=== PATIENT | male | born 2000 | race Caucasian/White ===

== ENCOUNTER 2018-11-13 10:06 | Emergency (ER) | payer SELFPAY ==
[~2018-11-13] VITALS: Ht 175.3 cm; Wt 77.1 kg
[2018-11-13] MEDS ORDERED: ZITHROMAX250 MG PO (10:58)
== END 2018-11-13 11:23 | disposition home or self-care (01) ==
LOC: ED 10:06
DX: J06.9 Acute upper respiratory infection, unspecified (principal); F17.200 Nicotine dependence, unspecified, uncomplicated
CPT/HCPCS: 71046; 99283-25

== ENCOUNTER 2020-01-18 16:34 | Emergency (ER) | payer SELFPAY ==
[~2020-01-18] VITALS: Ht 175.3 cm; Wt 74.4 kg
[~2020-01-18 16:34] MED LIST: ZITHROMAX250 MG PO
== END 2020-01-18 18:25 | disposition home or self-care (01) ==
LOC: ED 16:34
DX: K59.00 Constipation, unspecified (principal); F17.200 Nicotine dependence, unspecified, uncomplicated
CPT/HCPCS: 74176; 80053; 81001; 83690; 83735; 85025; 87491; 87591; 96374; 99284-25; J2405

== ENCOUNTER 2020-03-21 05:31 | Emergency (ER) | payer SELFPAY ==
[~2020-03-21] VITALS: Ht 175.3 cm; Wt 74.4 kg
--- NOTE | 2020-03-22 13:33 | EKG ---
[facility] [address] [place] [address] Signed Normal sinus rhythm Rightward axis Borderline ECG No previous ECGs available Confirmed by ALEXUS RUTHERFORD MD ([id number]) on 03/22/2020 1:33:07 PM Electronically Signed By: ALEXUS RUTHERFORD MD 03/22/20 1333 PATIENT NAME: FRANCO DENNY SHIVA Electrocardiogram DATE OF : [birth year] PHYSICIAN: ALEXUS RUTHERFORD MD REPORT #: [id number] REPORT IS CONFIDENTIAL AND NOT TO BE RELEASED WITHOUT AUTHORIZATION
== END 2020-03-21 06:13 | disposition home or self-care (01) ==
LOC: ED 05:31
DX: R07.9 Chest pain, unspecified (principal); F17.200 Nicotine dependence, unspecified, uncomplicated
CPT/HCPCS: 71045; 80053; 83735; 84484; 85025; 93005; 93010; 99285-25

== ENCOUNTER 2020-09-09 22:30 | Emergency (ER) | payer OTHER ==
[~2020-09-09] VITALS: Ht 175.3 cm; Wt 86.2 kg
== END 2020-09-10 00:40 | disposition home or self-care (01) ==
LOC: ED 22:30
DX: R10.31 Right lower quadrant pain (principal); Z87.891 Personal history of nicotine dependence
CPT/HCPCS: 74177; 80053; 81001; 83690; 85025; 96375; 99284-25; J1170; J2405; Q9967

== ENCOUNTER 2021-07-08 20:42 | Emergency (ER) | payer OTHER ==
[~2021-07-08] VITALS: Ht 175.3 cm; Wt 81.7 kg
--- OUTSIDE RECORDS SUMMARY | 2021-07-08 20:50 | XMS ---
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 Elana has no Care Guidelines for this patient. Le[facility] VISIT COUNT (12 MO.) [facility] TOTAL 3 NOTE: Visits indicate total known visits. ED/C VISIT TRACKING (12 MO.) 07/08/2021 20:42 [facility] [place] TYPE: Emergency COMPLAINT: - CHEST PAIN 06/22/2021 20:03 [facility] [place] TYPE: Emergency COMPLAINT: - SEIZURE DIAGNOSES: - Personal history of nicotine dependence - Contact with and (suspected) exposure to COVID-19 - Cerebral infarction, unspecified - Anesthesia of skin 09/09/2020 22:30 [facility] [place] TYPE: Emergency COMPLAINT: - ABDOMINAL PAIN DIAGNOSES: - Personal history of nicotine dependence - Right lower quadrant pain INPATIENT VISIT TRACKING (12 MO.) No inpatient visits to display in this time frame [email or web address]
[2021-07-08] MEDS ORDERED: MELATONIN5 M2 PO (21:09)
[2021-07-08] MEDS ORDERED: KEPPRA500 MG PO (21:09)
[2021-07-08] MEDS ORDERED: CYCLOBENZAPRINE10 MG PO (21:57)
--- NOTE | 2021-07-09 21:18 | EKG ---
[facility] [address] [place], [place] [address] Signed Sinus bradycardia Otherwise normal ECG When compared with ECG of 22-JUN-2021 20:11, No significant change was found Confirmed by MELL BARBOZA MD ([id number]) on 07/09/2021 9:17:55 PM Electronically Signed By: MELL BARBOZA MD 07/09/212117 PATIENT NAME: FRANCO DENNY Electrocardiogram DATE OF : [birth year] PHYSICIAN: MELL BARBOZA MD REPORT #: [id number] REPORT IS CONFIDENTIAL AND NOT TO BE RELEASED WITHOUT AUTHORIZATION
== END 2021-07-08 22:18 | disposition home or self-care (01) ==
LOC: ED 20:42
DX: R07.89 Other chest pain (principal); Z79.899 Other long term (current) drug therapy; Z87.891 Personal history of nicotine dependence
CPT/HCPCS: 36415; 71045; 80053; 83690; 84484; 85025; 93005; 93010; 96374; 99285-25; J1885

== ENCOUNTER 2023-09-12 21:35 | Emergency (ER) | payer OTHER ==
[~2023-09-12] VITALS: Ht 175.3 cm; Wt 84.0 kg
[~2023-09-12 21:35] MED LIST changes: +CYCLOBENZAPRINE10 MG PO; +KEPPRA500 MG PO; +MELATONIN5 M2 PO
[2023-09-12] MEDS ORDERED: COL-RITE250 MG PO (21:49)
[2023-09-12] MEDS ORDERED: KETOROLAC TROMETHAMINE 60 MG/2 ML VIAL IM ONE (22:30)
[2023-09-12 23:12] VITALS: BP 128/65
== END 2023-09-12 23:21 | disposition home or self-care (01) ==
LOC: ED 21:35
DX: S06.0X9A Concussion with loss of consciousness of unspecified duration, initial encounter (principal); W50.0XXA Accidental hit or strike by another person, initial encounter; Y93.66 Activity, soccer; Z87.891 Personal history of nicotine dependence; Z79.899 Other long term (current) drug therapy
CPT/HCPCS: 70450; 72125; J1885

== ENCOUNTER 2023-10-09 04:54 | Emergency (ER) | payer OTHER ==
[~2023-10-09] VITALS: Ht 175.3 cm; Wt 87.1 kg
[~2023-10-09 04:54] MED LIST changes: +COL-RITE250 MG PO
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
[2023-10-09] MEDS ORDERED: LACTATED RINGER'S 1,000 ML IV ONE (05:00)
[2023-10-09] MEDS ORDERED: levETIRAcetam 500 MG/5 ML VIAL IV ONE (05:00)
[2023-10-09 05:11] LABS: BASOPHILS 0.6 % (0-2); EOSINOPHILS 0.7 % (0-6); HEMATOCRIT 40.9 % (35.0-50.0); HEMOGLOBIN 13.8 g/dL (12.0-18.0); LYMPHOCYTES 35.5 % (24-44); MCH 31.2 (27-36); MCHC 33.9 g/dl (30-36); MCV 92.2 fl (81-99); MONOCYTES 7.2 % (0-12); PLATELET COUNT 174 K/uL (140-440); RBC 4.43 M/ul (4.3-5.7); RDW 14.1 (10.5-15.0)
[2023-10-09 05:24] LABS: ALBUMIN 3.9 g/dL (3.4-5.0); ALBUMIN/GLOBULIN RATIO 1.44 (1.1-2.4); ANION GAP 13.1 (7-21); BILIRUBIN, TOTAL 0.3 ng/dL (0.2-1.0); BUN/CREATININE RATIO 19.23 (6.0-28.6); CALCIUM 8.5 mg/dL (8.5-10.1); CREATININE, SERUM 1.04 mg/dL (0.70-1.30); POTASSIUM 4.1 mmol/L (3.5-5.1); PROTEIN, TOTAL 6.6 g/dL (6.4-8.2)
[2023-10-09 06:15] LABS: BILIRUBIN, URINE NEGATIVE (negative); BLOOD/HGB, URINE NEGATIVE (Negative); KETONE, URINE NEGATIVE (Negative); LEUK ESTERASE, URINE NEGATIVE (negative); NITRITE, URINE NEGATIVE (negative)
[2023-10-09 06:19] VITALS: BP 122/56
[2023-10-09 06:27] LABS: AMPHETAMINES, URINE NEGATIVE (NEGATIVE); BARBITURATES, URINE NEGATIVE (NEGATIVE); BENZODIAZEPINE, URINE NEGATIVE (NEGATIVE); BUPRENORPHINE, URINE NEGATIVE (NEGATIVE); CANNABINOID, URINE NEGATIVE (NEGATIVE); COCAINE, URINE NEGATIVE (NEGATIVE); ECSTASY, URINE NEGATIVE (NEGATIVE); FENTANYL, URINE NEGATIVE (NEGATIVE); METHADONE, URINE NEGATIVE (NEGATIVE); OPIATES, URINE NEGATIVE (NEGATIVE); OXYCODONE, URINE NEGATIVE (NEGATIVE); PHENCYCLIDINE, URINE NEGATIVE (NEGATIVE)
--- NOTE | 2023-10-09 22:08 | EKG ---
[facility] [address] [place] [address] Signed Sinus bradycardia Cannot rule out Inferior infarct , age undetermined Abnormal ECG When compared with ECG of 08-JUL-2021 20:45, No significant change was found Confirmed by Sara Hill MD () on 10/09/2023 10:07:53 PM Electronically Signed By: SARA HILL MD 10/09/232207 PATIENT NAME: FRANCO DENNY Electrocardiogram DATE OF : [birth year] PHYSICIAN: SARA HILL MD REPORT #: [id number] REPORT IS CONFIDENTIAL AND NOT TO BE RELEASED WITHOUT AUTHORIZATION
== END 2023-10-09 06:21 | disposition other institution, planned readmission (95) ==
LOC: ED 04:54
PROVIDERS: Internal Medicine
DX: G40.909 Epilepsy, unspecified, not intractable, without status epilepticus (principal); Z79.899 Other long term (current) drug therapy; Z87.891 Personal history of nicotine dependence
CPT/HCPCS: 36415; 80053; 80307; 81003; 85025; 93005; 93010; 96374; 99284-25; J1953; J7121

== ENCOUNTER 2024-01-25 13:03 | Emergency (ER) | payer OTHER ==
[~2024-01-25] VITALS: Ht 175.3 cm; Wt 84.1 kg
[2024-01-25] MEDS ORDERED: ASPIRIN 81 MG CHEW PO ONE (13:15)
[2024-01-25 13:41] LABS: BASOPHILS 0.2 % (0-2); EOSINOPHILS 0.2 % (0-6); HEMATOCRIT 46.9 % (35.0-50.0); LYMPHOCYTES 16.8 % (24-44); MCH 31.7 (27-36); MCV 93.1 fl (81-99); MONOCYTES 4.9 % (0-12); NEUTROPHILS 77.9 % (39-80); PLATELET COUNT 224 K/uL (140-440); RBC 5.03 M/ul (4.3-5.7); RDW 13.6 (10.5-15.0)
[2024-01-25 13:59] LABS: ALBUMIN 4.7 g/dL (3.4-5.0); ALBUMIN/GLOBULIN RATIO 1.52 (1.1-2.4); BILIRUBIN, TOTAL 0.4 ng/dL (0.2-1.0); BUN/CREATININE RATIO 18.69 (6.0-28.6); CALCIUM 9.4 mg/dL (8.5-10.1); CREATININE, SERUM 1.07 mg/dL (0.70-1.30); MAGNESIUM 1.9 mg/dL (1.8-2.4); PROTEIN, TOTAL 7.8 g/dL (6.4-8.2)
[2024-01-25] MEDS ORDERED: KETOROLAC TROMETHAMINE 30 MG/ML VIAL IV ONE (15:00)
[2024-01-25 16:12] VITALS: BP 121/47
--- NOTE | 2024-01-27 20:58 | EKG ---
[facility] [address] [place] [address] Signed Normal sinus rhythm Rightward axis Cannot rule out Inferior infarct , age undetermined Abnormal ECG No previous ECGs available Confirmed by Mauro Quinones MD ([id number]) on 01/27/2024 8:58:00 PM Electronically Signed By: MAURO QUINONES DO 01/27/242057 PATIENT NAME: FRANCO DENNY Electrocardiogram DATE OF : [birth year] PHYSICIAN: MAURO QUINONES DO REPORT #: [id number] REPORT IS CONFIDENTIAL AND NOT TO BE RELEASED WITHOUT AUTHORIZATION
== END 2024-01-25 16:12 | disposition home or self-care (01) ==
LOC: ED 13:03
PROVIDERS: Emergency Medicine
DX: R07.89 Other chest pain (principal); Z87.891 Personal history of nicotine dependence
CPT/HCPCS: 36415; 71045; 71260; 80053; 83735; 84484; 85025; 85379; 93005; 93010; 99285-25; J1885; Q9967